=== PATIENT | female | born 1990 | race Caucasian/White ===

== ENCOUNTER 2022-11-14 11:52 | Emergency (ER) | payer BC ==
[~2022-11-14] VITALS: Ht 157.5 cm; Wt 90.0 kg
--- NOTE | 2022-11-14 12:17 | ED GU-Female ---
General Chief Complaint: OB < 20 WEEKS Stated Complaint: 2-3 WEEKS | VAGINAL BLEEDING Nursing Triage Note: Patient c/o vaginal bleeding that started yesterday with being "brown" blood. Patient states the blood is bright red today. Patient denies using a pad an hr. Patient states she had 2 positive test yesterday. Patient states her LMP was about 4 wks ago. Patient states she is having little Abd. cramping. Source: patient Exam Limitations: no limitations History of Present Illness Date Seen by Provider: Nov 14, 2022 Time Seen by Provider: 11:59 Initial Comments 32-year-old female presents to the ER with reports of vaginal bleeding. She states that yesterday she was seen at [facility] and had a positive test. She states that at that time she had brown-colored discharge. She reports that today she has bright red discharge, and very mild middle abdominal cramping. Denies unilateral pain. She states that she has not yet filled a pad with blood. She reports this is her first , she has no children. She reports nausea, no vomiting. Denies fevers, diarrhea, vaginal discharge, dysuria. She is uncertain of her last menstrual cycle, states it was approximately 4 weeks ago. Allergies and Home Medications Allergies Coded Allergies: No Known Allergies (Verified Allergy, Unknown, 11/14/22) Patient Home Medication List Home Medication List Reviewed: Yes Review of Systems Review of Systems Constitutional: see HPI Past Twmmoai-Posfai-Cqvpde Hx Patient Social History Tobacco Use?: No Use of E-Cig and/or Vaping dev: No Substance use?: No Alcohol Use?: Yes Alcohol type: Hard Liquor Alcohol Frequency: Rarely Immunizations Up To Date Influenza Vaccine Up-to-Date: Yes; Up-to-Date Past Medical History Last Menstrual Period: Oct 17, 2022 Physical Exam Vital Signs Vital Signs - First Documented 11/14/22 11/14/22 11:59 14:45 Temp 36.7 Pulse 91 Resp 14 B/P (MAP) 116/84 (95) Pulse Ox 97 O2 Delivery Room Air Capillary Refill : Height, Weight, BMI Height: '" Weight: lbs. oz. kg; 36.00 BMI Method: General Appearance: WD/WN, no apparent distress Neck: supple, normal inspection Cardiovascular: regular rate, rhythm Respiratory: lungs clear, normal breath sounds, no respiratory distress, no accessory muscle use Gastrointestinal: normal bowel sounds Pelvic: normal external exam, vaginal bleeding (Small amount), other (Os appears open) Extremities: normal range of motion, normal inspection Neurologic/Psychiatric: alert, normal mood/affect Skin: normal color, warm/dry Progress/Results/Core Measures Suspected Sepsis SIRS Temperature: Pulse: 91 Respiratory Rate: 14 Laboratory Tests 11/14/22 12:25: White Blood Count 9.9 Blood Pressure 116 /84 Mean: 95 Laboratory Tests 11/14/22 12:25: Platelet Count 260 Results/Orders Lab Results Laboratory Tests Test 11/14/22 12:25 11/14/22 13:24 11/14/22 14:17 Range/Units White Blood Count 9.9 4.3-11.0 10^3/uL Red Blood Count 4.72 3.80-5.11 10^6/uL Hemoglobin 14.3 11.5-16.0 g/dL Hematocrit 43 35-52 % Mean Corpuscular Volume 90 80-99 fL Mean Corpuscular Hemoglobin 30 25-34 pg Mean Corpuscular Hemoglobin Concent 34 32-36 g/dL Red Cell Distribution Width 11.5 10.0-14.5 % Platelet Count 260 130-400 10^3/uL Mean Platelet Volume 10.1 9.0-12.2 fL Immature Granulocyte % (Auto) 0 % Neutrophils (%) (Auto) 76 H 42-75 % Lymphocytes (%) (Auto) 14 12-44 % Monocytes (%) (Auto) 9 0-12 % Eosinophils (%) (Auto) 1 0-10 % Basophils (%) (Auto) 0 0-10 % Neutrophils # (Auto) 7.5 1.8-7.8 10^3/uL Lymphocytes # (Auto) 1.4 1.0-4.0 10^3/uL Monocytes # (Auto) 0.9 0.0-1.0 10^3/uL Eosinophils # (Auto) 0.1 0.0-0.3 10^3/uL Basophils # (Auto) 0.0 0.0-0.1 10^3/uL Immature Granulocyte # (Auto) 0.0 0.0-0.1 10^3/uL Human Chorionic Gonadotropin, Quant 151 H <5 MIU/ML Urine Color RED H Urine Clarity CLOUDY Urine pH 7.0 5-9 Urine Specific [place] 1.020 1.016-1.022 Urine Protein 2+ H NEGATIVE Urine Glucose (UA) NEGATIVE NEGATIVE Urine Ketones NEGATIVE NEGATIVE Urine Nitrite NEGATIVE NEGATIVE Urine Bilirubin 1+ H NEGATIVE Urine Urobilinogen 1.0 < = 1.0 MG/DL Urine Leukocyte Esterase NEGATIVE NEGATIVE Urine RBC (Auto) 3+ H NEGATIVE Urine RBC TNTC H /HPF Urine WBC RARE /HPF Urine Squamous Epithelial Cells 5-10 /HPF Urine Crystals NONE /LPF Urine Bacteria TRACE /HPF Urine Casts NONE /LPF Urine Mucus NEGATIVE /LPF Urine Culture Indicated NO Micro Results Microbiology 11/14/22 Wet Prep - Final, Complete My Orders Orders - ROMAINE IRVING APRN Ua Culture If Indicated (11/14/22 11:59) Urine Bedside (11/14/22 11:59) Cbc With Automated Diff (11/14/22 12:09) Hcg,Quantitative (11/14/22 12:09) Abo Rh Type (11/14/22 12:09) Wet Prep (11/14/22 14:18) Neisseria Gonorrhea Swab (11/14/22 14:18) Chlamydia Trachomatis Swab (11/14/22 14:18) Vital Signs/I&O Capillary Refill : Blood Pressure Mean: 95 Progress Note : Progress Note Patient seen and evaluated, resting comfortably in bed, no acute distress. Based on exam and symptoms, differential diagnosis includes but is not limited to threatened miscarriage, miscarriage, menstrual cycle, UTI, pelvic inflammatory disease, STD. Work-up initiated including CBC, Rh, hCG, UA, urine . 1330 Labs reviewed. CBC grossly normal. hCG 151. Patient's blood type is A+. I called and spoke with Dr. Rivers, [facility] OB on-call. Since patient's hCG is only 151, and she is having mid abdominal cramping, not unilateral pain, Dr. Rivers is going to order an outpatient ultrasound. The clinic will call the patient for this. They will also call the patient to schedule a follow-up appointment. 1417 Urinalysis shows 2+ protein, 1+ bilirubin, 3+ RBCs, negative nitrates, negative leukocytes, rare WBCs, trace bacteria, 5-10, epithelial cells. Specimen appears contaminated. Will not treat for urinary tract infection. Pelvic exam completed. Small amount of dark red blood. Os appears to possibly be open. Wet prep, gonorrhea, chlamydia testing obtained. Results so far discussed with patient. Plan of care discussed with patient. 1439 wet prep negative for clue cells, yeast, trichomonas. Results discussed with patient. Patient instructed to follow-up with [facility] for her ultrasound. Informed that they will call her to schedule this. Patient instructed to remain on pelvic rest until she is cleared by OB. Discharge instructions and return precautions provided. Departure Impression Primary Impression: Threatened miscarriage in early Disposition: HOME, SELF-CARE Condition: Stable Departure-Patient Inst. Decision time for Depature: 14:40 Referrals: NO,LOCAL PHYSICIAN (PCP/Family) Primary Care Physician Patient Instructions: Threatened Miscarriage (DC) Add. Discharge Instructions: Pelvic rest until you are cleared by OB. This means nothing into the vagina, no intercourse. [facility] will call you to schedule your ultrasound and follow-up appointment. You should be taking a that contains folic acid. Return if you are having a significant amount of bleeding this means that you are saturating a heavy pad once an hour for several hours, you are dizzy or lightheaded, pass out, or any other new, concerning, or worsening symptoms. All discharge instructions reviewed with patient and/or family. Voiced understanding. ROMAINE IRVING APRN Nov 14, 2022 12:17
[2022-11-14 12:32] LABS: BASOPHILS % (AUTO) 0 % (0-10); EOSINOPHILS # (AUTO) 0.1 10^3/uL (0.0-0.3); EOSINOPHILS % (AUTO) 1 % (0-10); HEMATOCRIT 43 % (35-52); HEMOGLOBIN 14.3 g/dL (11.5-16.0); LYMPHOCYTES # (AUTO) 1.4 10^3/uL (1.0-4.0); LYMPHOCYTES % (AUTO) 14 % (12-44); MEAN CORPUSCULAR HEMOGLOBIN 30 pg (25-34); MEAN CORPUSCULAR HGB CONC 34 g/dL (32-36); MEAN CORPUSCULAR VOLUME 90 fL (80-99); MEAN PLATELET VOLUME 10.1 fL (9.0-12.2); MONOCYTES # (AUTO) 0.9 10^3/uL (0.0-1.0); MONOCYTES % (AUTO) 9 % (0-12); NEUTROPHILS # (AUTO) 7.5 10^3/uL (1.8-7.8); NEUTROPHILS % (AUTO) 76 % (42-75); PLATELET COUNT 260 10^3/uL (130-400); WHITE BLOOD COUNT 9.9 10^3/uL (4.3-11.0)
[2022-11-14 14:00] LABS: BILIRUBIN,URINE 1+ (NEGATIVE); CLARITY,URINE CLOUDY; COLOR,URINE RED; GLUCOSE, URINE (UA) NEGATIVE (NEGATIVE); KETONES,URINE NEGATIVE (NEGATIVE); NITRITE,URINE NEGATIVE (NEGATIVE); PROTEIN,URINE 2+ (NEGATIVE)
[2022-11-14 14:01] LABS: BACTERIA,URINE TRACE /HPF; LEUKOCYTE ESTERASE ,URINE NEGATIVE (NEGATIVE); RBC,URINE TNTC /HPF; WBC,URINE RARE /HPF
[2022-11-14 14:45] VITALS: BP 106/67
== END 2022-11-14 14:45 | disposition home or self-care (01) ==
LOC: ER 11:56
DX: O20.0 Threatened abortion (principal); Z3A.01 Less than 8 weeks gestation of pregnancy
CPT/HCPCS: 36415; 81000; 84702; 84703; 85025; 86900; 86901; 87210; 87491; 87591; 99284

== ENCOUNTER 2022-11-15 18:57 | Emergency (ER) | payer BC ==
[~2022-11-15] VITALS: Ht 157.5 cm; Wt 89.8 kg
--- NOTE | 2022-11-15 19:42 | ED GU-Female ---
General Chief Complaint: OB < 20 WEEKS Stated Complaint: CRAMPING, LOW BACK PAIN Source: patient Exam Limitations: no limitations History of Present Illness Date Seen by Provider: Nov 15, 2022 Time Seen by Provider: 19:29 Initial Comments 32-year-old G1, P0 female presents to the ER with complaint of mid abdominal cramping and lower back pain. She also reports a very small amount of light brown spotting today. Patient was seen yesterday for mild lower abdominal cramping, and vaginal bleeding. She states that today the abdominal cramping became much more intense. She reports that her vaginal bleeding has improved significantly. Patient was seen by [facility] today and had an ultrasound, she states that they were unable to see anything in the uterus. Patient's hCG level yesterday was 151. Patient states that they redrew her hCG level today, but she does not have the results of this yet. Allergies and Home Medications Allergies Coded Allergies: No Known Allergies (Verified Allergy, Unknown, 11/14/22) Patient Home Medication List Home Medication List Reviewed: Yes Review of Systems Review of Systems Constitutional: see HPI Past Sbmvbds-Fmltgt-Nsyueq Hx Patient Social History Tobacco Use?: No Use of E-Cig and/or Vaping dev: No Substance use?: No Alcohol Use?: Yes Alcohol Frequency: Rarely Physical Exam Vital Signs Vital Signs - First Documented 11/15/22 19:15 Temp 35.6 Pulse 80 Resp 18 B/P (MAP) 129/71 (90) Pulse Ox 97 O2 Delivery Room Air Capillary Refill : Height, Weight, BMI Height: '" Weight: lbs. oz. kg; 36.00 BMI Method: General Appearance: WD/WN, no apparent distress Neck: supple, normal inspection Cardiovascular: regular rate, rhythm Respiratory: lungs clear, normal breath sounds, no respiratory distress, no accessory muscle use Gastrointestinal: normal bowel sounds, soft, tenderness (Mid lower tenderness) Extremities: normal range of motion, normal inspection Neurologic/Psychiatric: alert, normal mood/affect Skin: normal color, warm/dry Progress/Results/Core Measures Suspected Sepsis SIRS Temperature: Pulse: Respiratory Rate: Blood Pressure / Mean: Results/Orders Lab Results Laboratory Tests Test 11/15/22 19:53 Range/Units Human Chorionic Gonadotropin, Quant 102 H <5 MIU/ML My Orders Orders - ROMAINE IRVING APRN Acetaminophen Tablet (Acetaminophen Ta (11/15/22 19:45) Hcg,Quantitative (11/15/22 19:32) Medications Given in ED Current Medications Medications Dose Ordered Sig/Jenna Route Start Time Stop Time Status Last Admin Dose Admin Acetaminophen 1,000 mg ONCE ONCE PO 11/15/22 19:45 11/15/22 19:46 DC 11/15/22 19:45 1,000 MG Vital Signs/I&O 11/15/22 19:15 Temp 35.6 Pulse 80 Resp 18 B/P (MAP) 129/71 (90) Pulse Ox 97 O2 Delivery Room Air Capillary Refill : Progress Note : Progress Note Patient seen and evaluated, resting comfortably in bed, no acute distress. Patient had a full work-up yesterday. I will repeat patient's hCG level. Tylenol ordered for pain. 2053 hCG reviewed. Result is 102, this is decreased from yesterday which was 151. Results discussed with patient. Patient informed that this is likely a miscarriage. Patient instructed to follow-up with [facility] next week. Discharge instructions and return precautions provided. Departure Impression Primary Impression: Threatened miscarriage in early Disposition: HOME, SELF-CARE Condition: Stable Departure-Patient Inst. Decision time for Depature: 20:54 Referrals: [facility] [place] (PCP/Family) Primary Care Physician Patient Instructions: Miscarriage (DC) Add. Discharge Instructions: This is likely a miscarriage. You can expect to have more abdominal cramping. You may take Tylenol for this. You can expect to have more vaginal bleeding. Follow-up with [facility] next week. Return to the ER if you have significant vaginal bleeding, you are saturating a heavy menstrual pad every hour for several hours, you become dizzy, or lightheaded, or any other new, concerning, or worsening symptoms. All discharge instructions reviewed with patient and/or family. Voiced understanding. ROMAINE IRVING APRN Nov 15, 2022 19:42
[2022-11-15] MEDS ORDERED: ACETAMINOPHEN 500 MG TABLET PO ONE (19:45)
[2022-11-15 21:05] VITALS: BP 127/92
== END 2022-11-15 21:05 | disposition home or self-care (01) ==
LOC: EDUNIT# 18:57 → ER 19:01
DX: O20.0 Threatened abortion (principal)
CPT/HCPCS: 36415; 84702; 99283